=== PATIENT | male | born 1995 | race Two or more races ===

== ENCOUNTER 2024-01-01 12:03 | Emergency (ER) | payer SELFPAY ==
[~2024-01-01] VITALS: Ht 157.5 cm; Wt 65.8 kg
[2024-01-01] MEDS ORDERED: NABU-72 PO (17:23)
[2024-01-01 17:34] VITALS: BP 128/89; PULSE 80; RESP 16; TEMP 98.2; O2SAT 99
[2024-01-03 22:06] LABS: Chlamydia Trachomatis, NAA Negative (Negative); Neisseria gonorrhoeae, NAA Negative (Negative)
== END 2024-01-01 17:44 | disposition home or self-care (01) ==
LOC: ER 12:03
DX: M79.622 Pain in left upper arm (principal); R07.81 Pleurodynia; M25.522 Pain in left elbow; Z20.2 Contact with and (suspected) exposure to infections with a predominantly sexual mode of transmission; Z79.899 Other long term (current) drug therapy; W23.0XXA Caught, crushed, jammed, or pinched between moving objects, initial encounter; Y93.89 Activity, other specified; Y92.89 Other specified places as the place of occurrence of the external cause; Y99.8 Other external cause status
CPT/HCPCS: 71101; 73030; 73080

== ENCOUNTER 2024-09-11 22:56 | Emergency (ER) | payer MEDICAID ==
[~2024-09-11] VITALS: Ht 152.4 cm; Wt 73.9 kg
[~2024-09-11 22:56] MED LIST: NABU-72 PO
--- NOTE | 2024-09-12 00:44 | ED.PDOC ---
Epistaxis- HPI HPI Comments PT PRESENTED TO ED FOR NOSEBLEED BRIGHT RED BLOOD W/ CLOTS, N/V X1 WEEK. NO BLOOD NOTED IN EMESIS BAG. BLEEDING CONTROLLED. PT STATED IT WORSENS WHEN HE SITS UP. ALL VSS Chief Complaint: Nose Bleed Time Seen by MD: 23:19 Reviewed Notes: Nurses Notes, Medications, Allergies Allergies: Coded Allergies: Penicillins (Verified Allergy, Unknown, 03/17/24) Home Meds Active Scripts Nabumetone (Nabumetone) 500 Mg Tab, 1 TAB PO BID PRN, #30 TAB Prov:WYATT [employer]STERS [employer] 01/01/24 Information Source: Patient Mode of Arrival: Ambulatory Past Medical History PAST MEDICAL HISTORY: Denies Surgical History: Denies all surgeries Family History Family History: Reviewed,noncontributory to illness, No family hx of Cancer, No family hx of DM, No family hx of Heart donald, No family hx of HTN, No family hx ofKidney donald, No family hx of Liver donald, No family hx of Lung donald, No family hx of Stroke Social History Smoker: Non-Smoker Alcohol: Denies ETOH Use Drugs: Denies Drug Use Constitutional: denies: chills, diaphoresis, fatigue, fever, malaise, sweats, weakness, others EENTM: reports: others (NOSEBLEED); denies: blurred vision, double vision, ear bleeding, ear discharge, ear drainage, ear pain, ear ringing, eye pain, eye red ness, hearing loss, mouth pain, mouth swelling, nasal discharge, nose bleeding, nose congestion, nose pain, photophobia, tearing, throat pain, throat swelling, voice changes Physical Exam General Appearance: No Apparent Distress, Normal HEENT: Normal ENT Inspection, Pharynx Normal, TMs Normal Neck: Full Range of Motion, Non-Tender Respiratory: Chest Non-Tender, Lungs Clear, No Accessory Muscle Use, No Respira tory Distress, Normal Breath Sounds Cardiovascular: No Edema, No JVD, No Murmur, No Gallop, Normal Peripheral Pulses, Regular Rate/Rhythm Breast Exam: Deferred Gastrointestinal: Non Tender, Soft Genitalia: Deferred Pelvic: Deferred Rectal: Deferred Extremities: Normal capillary refill, Normal inspection, Normal range of motion, Non-tender, No pedal edema Musculoskeletal : Apperance: Normal Neurologic: Alert, break out worker II-XII nml as Tested, No Motor Deficits, Normal Affect, Normal Mood, No Sensory Deficits Cerebellar Function: Normal Reflexes: Normal Skin: Dry, Normal Color, Warm Lymphatic: No Adenopathy Was a procedure done? Was a procedure done?: No Differential Diagnosis (NSB) Differential Diagnosis: Posterior Nasal Bleed, Foreign Body, Hypertension, Coagulopathy X-Ray, Labs, Meds, VS Vital Signs Date Time Temp Pulse Resp B/P (MAP) Pulse Ox O2 Delivery O2 Flow Rate FiO2 09/12/24 00:15 98.4 80 16 130/61 (84) 96 X-Ray, Labs, Meds, VS Comment BLEEDING STOPPED ADVISED TO AVOID PICKING NOSE, BLOWING NOSE USE [id number] NASAL OCEAN SPRAY ORAL LUBRICATING NASAL DROPS. PCP IN 2-3 DAYS NECESSARY CONSIDER REFERRAL FOR ENT FOR CHRONIC NOSEBLEED Time of 1ST Reevaluation: 00:43 Reevaluation 1ST: Improved Patient Education/Counseling: Diagnosis, Treatment, Prognosis, Need For Follow Up Family Education/Counseling: No Family Present Departure 1 Departure Time of Disposition: 00:39 Impression: Primary Impression: Anterior epistaxis Disposition: 01 HOME / SELF CARE / HOMELESS Condition: Stable Discharged With: Self Critical Care Note Critical Care Time?: No Stability Stability form required: MAHSA Carlson Sep 12, 2024 00:44
[2024-09-12 01:18] VITALS: BP 124/76; PULSE 77; RESP 18; TEMP 98.4; O2SAT 98
== END 2024-09-12 01:26 | disposition home or self-care (01) ==
LOC: ER 22:56
DX: R04.0 Epistaxis (principal); Z88.0 Allergy status to penicillin